=== PATIENT | male | born 1940 | race Two or more races ===

== ENCOUNTER 2019-11-23 12:25 | Inpatient (IN) | payer MEDICARE, OTHER ==
[~2019-11-23] VITALS: Ht 160 cm; Wt 83.0 kg
[2019-11-23 12:34] VITALS: BP 153/78
--- NOTE | 2019-11-23 12:40 | NUR ---
PT AMBULATED TO ER BED 06
--- NOTE | 2019-11-23 12:46 | NUR ---
PATIENT PRESENTS TO ED WITH PRODUCTIVE COUGH AND RUNNY NOSE X 4 DAYS. +SORE THROAT, -FEVER, -N/V/D. PATIENT TOOK OTC MEDS WHICH PROVIDED NO RELIEF. AAOX4 WITH EVEN AND STEADY GAIT; LUNGS CLEAR BL; HR EVEN AND REGULAR; PATIENT STATES PAIN OF 0/10 AT THIS TIME; VSS; PATIENT POSITIONED FOR COMFORT; HOB ELEVATED; BEDRAILS UP X2; BED DOWN. ER MD MADE AWARE OF PT STATUS. PMH: DM, HTN, S/P CVA, BPH MEDS: INSULIN, LANTUS, ATORVASTATIN, TAMSULOSIN, METOPROLOL ALLERGIES: NONE
[2019-11-23] MEDS ORDERED: MECLIZINE 25 MG TAB PO ONE (12:55)
[2019-11-23] MEDS ORDERED: cefTRIAXone 1,000 MG in LIDOCAINE MPF 1% 2.1 ML IM ONE (12:55)
[2019-11-23] MEDS ORDERED: ALBUTEROL SULFATE/IPRATROPIU 3 ML SOL IH ONE (12:55)
[2019-11-23] MEDS ORDERED: KETOROLAC 30 MG/ML VIAL IM ONE (12:55)
[2019-11-23] MEDS ORDERED: predniSONE 20 MG TAB PO ONE (12:55)
[2019-11-23] MEDS ORDERED: hydrOXYzine HCL 25 MG TAB PO ONE (12:55)
[2019-11-23] MEDS ORDERED: cefTRIAXone 1,000 MG VIAL ONE (13:03)
[2019-11-23] MEDS ORDERED: LIDOCAINE MPF 1% 5 ML ONE (13:04)
--- NOTE | 2019-11-23 13:07 | NUR ---
PT TO XRAY VIA WHEELCHAIR
--- NOTE | 2019-11-23 13:18 | NUR ---
MEDICATIONS ADMINISTERED ORDERED
--- NOTE | 2019-11-23 13:31 | NUR ---
CALLED RT FOR BREATHING TX
[2019-11-23] MEDS ORDERED: NACL 0.9% 1,000 ML IV SCH (13:54)
[2019-11-23] MEDS ORDERED: methylPREDNISolone SS 125 MG/2 ML VIAL IVP ONE (13:55)
[2019-11-23] MEDS ORDERED: LEVOFLOXACIN 500 MG/D5W PREMIX 100 ML IV ONE (13:55)
--- NOTE | 2019-11-23 14:38 | NUR ---
PT REFUSED ABG. DR SEXTON IS AWARE. PT IS ON RA SAT 98%. PT IS COMFORTABLE. FAMILY AT BEDSIDE
--- NOTE | 2019-11-23 15:25 | NUR ---
PATIENT LAYING IN BED. AAO, AT BEDSIDE. NO NEEDS STATED AT THIS TIME.
[2019-11-23] MEDS ORDERED: ONDANSETRON 4 MG/2 ML VIAL IM/IVP PRN (15:40)
[2019-11-23] MEDS ORDERED: HYDROcodone/APAP 5/325 MG 1 TAB TAB PO PRN (15:40)
[2019-11-23] MEDS ORDERED: ALBUTEROL SULFATE/IPRATROPIU 3 ML SOL IH PRN (15:40)
[2019-11-23] MEDS ORDERED: ACETAMINOPHEN 325 MG TAB PO PRN (15:40)
[2019-11-23] MEDS ORDERED: LORazepam 2 MG/ML VIAL IM/IVP PRN (15:40)
[2019-11-23] MEDS ORDERED: MORPHINE SULFATE 2 MG/ML SYR IVP PRN (15:40)
[2019-11-23] MEDS ORDERED: DOCUSATE SODIUM 100 MG GELCAP PO PRN (15:40)
[2019-11-23 15:57] LABS: BASOPHILS # (AUTO) 0.1 K/uL (0.00-0.22); BASOPHILS % (AUTO) 1.3 % (0.0-2.0); EOSINOPHILS # (AUTO) 0.3 K/uL (0-0.4); EOSINOPHILS % (AUTO) 5.2 % (0.0-4.0); HEMATOCRIT 51.7 % (36-52); HEMOGLOBIN 17.1 g/dL (12.0-18.0); LYMPHOCYTES # (AUTO) 1.2 K/uL (2.0-11.5); LYMPHOCYTES % (AUTO) 21.8 % (20.5-51.1); MEAN CORPUSCULAR HEMOGLOBIN 30 pg (27-31); MEAN CORPUSCULAR HGB CONC 33 g/dL (33-37); MEAN CORPUSCULAR VOLUME 91.7 fL (80-94); MONOCYTES # (AUTO) 0.2 K/uL (0.8-1.0); NEUTROPHILS # (AUTO) 3.7 K/uL (1.8-7.7); NEUTROPHILS % (AUTO) 67.7 % (42.2-75.2); PLATELET COUNT (AUTO) 128 K/uL (140-450); RED BLOOD CELL COUNT(AUTO) 5.64 MIL/uL (4.20-6.10); RED CELL DISTRIBUTION WIDTH 14.2 % (11.6-13.7); WHITE BLOOD COUNT (AUTO) 5.5 K/uL (4.8-10.8)
[2019-11-23] MEDS ORDERED: METO100T14 PO (16:04)
[2019-11-23] MEDS ORDERED: MID5 PO (16:04)
[2019-11-23] MEDS ORDERED: ISOS20TA13 PO (16:04)
[2019-11-23] MEDS ORDERED: HUM SUBQ (16:04)
[2019-11-23] MEDS ORDERED: ATOR40TA PO (16:04)
[2019-11-23] MEDS ORDERED: ORE25 PO (16:04)
[2019-11-23] MEDS ORDERED: INSU100S22 SUBQ (16:04)
[2019-11-23] MEDS ORDERED: TAMS0.4C96 PO (16:04)
[2019-11-23 16:12] VITALS: BP 155/92
--- NOTE | 2019-11-23 16:12 | NUR ---
PATIENT ADMITTED TO HOSPITAL UNDER BOB CARE OF DR. MENJIVAR. PATIENT TAKEN IN [facility] ON MONITOR TO BED 119-A. REPORT GIVEN TO ZIGGY STAPLES. PATIENT STABLE DURING TRASPORT.
--- NOTE | 2019-11-23 16:12 | NUR ---
PATIENT ARRIVED FROM ER VIA GURNEY. PATIENT ABLE TO AMBULATE FROM ER [facility] TO [facility] WITH STEADY GAIT. AAOX4, CALM, COOPERATIVE, SKIN COLOR APPROPRIATE TO ETHNICITY, WARM TO TOUCH. SKIN INTACT. RESPIRATIONS EVEN, UNLABORED, ON ROOM AIR. IV SITE INTACT, PATENT, AND ON SALINE LOCK. REVIEWED PLAN OF CARE WITH PATIENT/FAMILY AT BEDSIDE. PATIENT/FAMILY VERBALIZED UNDERSTANDING. SAFETY MEASURES IN PLACE, CALL LIGHT WITHIN REACH. WILL CONTINUE TO MONITOR.
[2019-11-23 16:18] LABS: PROTHROMBIN TIME 9.8 secs (10.8-13.4)
[2019-11-23 16:32] LABS: ASPARTATE AMINOTRANSFERASE 16 U/L (15-37); CARBON DIOXIDE 28.9 mmol/L (21-32); CREATININE 1.6 mg/dL (0.7-1.3); GLUCOSE 271 mg/dL (74-106); TOTAL BILIRUBIN 0.4 mg/dL (0.0-1.0); UREA NITROGEN, BLOOD 36 mg/dL (7-18)
[2019-11-23 16:34] LABS: BARBITURATE, URINE NEG. ng/ml (NEG <=200); BENZODIAZEPINE, URINE NEG. ng/mL (NEG <=200); CANNABINOID, URINE NEG. ng/mL (NEG <=50); COCAINE, URINE NEG. ng/mL (NEG <=300); OPIATE, URINE NEG. ng/mL (NEG <=2000); PHENCYCLIDINE SCREEN,URINE NEG. ng/mL (NEG <=25)
[2019-11-23] MEDS ORDERED: DEXTROSE 50% 50 ML SYR IVP PRN (16:35)
[2019-11-23 16:42] LABS: ALBUMIN 3.7 g/dL (3.4-5.0); ANION GAP 12.1 (8-16); CHLORIDE 105 mmol/L (98-107); SODIUM SERUM 141 mmol/L (136-145)
[2019-11-23 16:45] LABS: MAGNESIUM 1.9 mg/dL (1.8-2.4); PHOSPHORUS 2.3 mg/dL (2.5-4.9); THYROID STIMULATING HORMONE 2.2 uIU/mL (0.34-3.74)
[2019-11-23 17:15] LABS: APPEARANCE,URINE CLEAR (CLEAR); BILIRUBIN,URINE NEGATIVE (NEGATIVE); BLOOD, URINE TRACE-I (NEGATIVE); COLOR,URINE YELLOW (YELLOW); LEUKOCYTE ESTERASE ,URINE NEGATIVE (NEGATIVE); NITRITE, URINE NEGATIVE (NEGATIVE); UGLUCOSE 3+ (NEGATIVE)
[2019-11-23] MEDS: INSULIN LISPRO 100 UNITS/ML VIAL SUBQ SCH (18:17)
[2019-11-23] MEDS: NACL 0.9% 1,000 ML IV SCH (18:18)
--- NOTE | 2019-11-23 18:18 | NUR ---
PATIENT SITTING DOWN IN BED. NO DISTRESS NOTED. SCHEDULED MEDICATIONS DUE GIVEN. WILL CONTINUE TO MONITOR.
--- NOTE | 2019-11-23 19:20 | NUR ---
GAVE REPORT TO FINAL FINISHER NURSE. PT IS IN STABLE CONDITION.
--- NOTE | 2019-11-23 19:21 | NUR ---
RECEIVED REPORT FROM AM SHIFT NURSE. PATIENT ALERT AND ORIENTED X4. NO APPARENT DISTRESS NOTED. WITH LEFT AC 20G RUNNING IVF. AMBULATORY. SAFETY OBSERVED AT ALL TIMES. WILL CONTINUE TO MONITOR.
[2019-11-23 20:00] VITALS: BP 140/76
[2019-11-23] MEDS: BLOOD GLUCOSE MONITORING 1 DEV DEV FS SCH (21:15)
[2019-11-23] MEDS: METOPROLOL SUCCINATE 50 MG TABER PO SCH (21:19)
--- NOTE | 2019-11-23 21:20 | NUR ---
PATIENT ASLEEP IN BED. VISIBLE CHEST RISE AND FALL NOTED. NO APPARENT DISTRESS NOTED. WILL CONTINUE TO MONITOR.
[2019-11-23] MEDS: INSULIN LISPRO SLIDING SCALE 100 UNITS/ML VIAL SUBQ PRN (21:24)
[2019-11-23] MEDS: ALBUTEROL SULFATE/IPRATROPIU 3 ML SOL IH SCH (21:41)
--- NOTE | 2019-11-23 21:56 | NUR ---
RECEIVED PATIENT ON ROOM AIR, PULSE OX SAT 95%. SCHEDULED BREATHING TREATMENT ADMINISTERED. TOLERATED TX WELL WITHOUT ADVERSE SIDE EFFECTS. EDUCATED PATIENT ON USE OF INCENTIVE SPIROMETER. PATIENT PERFORMED RETURN DEMONSTRATION WITH GOOD EFFORT. NO ACUTE RESPIRATORY DISTRESS NOTED AT THIS TIME. WILL CONTINUE TO MONITOR.
--- NOTE | 2019-11-23 23:15 | NUR ---
PATIENT ASLEEP IN BED. NO APPARENT DISTRESS NOTED. VISIBLE CHEST RISE AND FALL NOTED. WILL CONTINUE TO MONITOR.
[2019-11-24] VITALS (7 sets, daily range): BP systolic 122–173; BP diastolic 54–82
--- NOTE | 2019-11-24 01:13 | NUR ---
ROUNDS DONE. PATIENT ASLEEP IN BED. NO APPARENT DISTRESS NOTED. VISIBLE CHEST RISE AND FALL NOTED. WILL CONTINUE TO MONITOR.
--- NOTE | 2019-11-24 03:10 | NUR ---
ROUNDS DONE. PATIENT ASLEEP IN BED. NO APPARENT DISTRESS NOTED. VISIBLE CHEST RISE AND FALL. WILL CONTINUE TO MONITOR.
[2019-11-24] MEDS: NACL 0.9% 1,000 ML IV SCH ×2 (03:25→14:29)
--- NOTE | 2019-11-24 05:05 | NUR ---
PATIENT ASLEEP IN BED. NO APPARENT DISTRESS NOTED. BED ON LOW POSITION. VISIBLE CHEST RISE AND FALL NOTED. SAFETY ENSURED. WILL CONTINUE TO MONITOR.
[2019-11-24] MEDS: INSULIN LISPRO SLIDING SCALE 100 UNITS/ML VIAL SUBQ PRN ×3 (06:04→20:56)
[2019-11-24] MEDS: BLOOD GLUCOSE MONITORING 1 DEV DEV FS SCH ×4 (06:23→20:48)
--- NOTE | 2019-11-24 06:32 | NUR ---
PATIENT HAS BEEN SCREENED AND CATEGORIZED MODERATE NUTRITION RISK. PATIENT WILL BE SEEN WITHIN 3-5 DAYS OF ADMISSION. 11/26/19-11/28/19 ORALIA TELLEZ MS, RDN
[2019-11-24 06:40] LABS: BASOPHILS % (AUTO) 0.1 % (0.0-2.0); HEMATOCRIT 49.4 % (36-52); HEMOGLOBIN 16.5 g/dL (12.0-18.0); LYMPHOCYTES # (AUTO) 0.9 K/uL (2.0-11.5); LYMPHOCYTES % (AUTO) 13.7 % (20.5-51.1); MEAN CORPUSCULAR HEMOGLOBIN 30 pg (27-31); MEAN CORPUSCULAR HGB CONC 33 g/dL (33-37); MONOCYTES # (AUTO) 0.1 K/uL (0.8-1.0); NEUTROPHILS # (AUTO) 5.7 K/uL (1.8-7.7); NEUTROPHILS % (AUTO) 84.2 % (42.2-75.2); PLATELET COUNT (AUTO) 125 K/uL (140-450); RED BLOOD CELL COUNT(AUTO) 5.43 MIL/uL (4.20-6.10); RED CELL DISTRIBUTION WIDTH 13.8 % (11.6-13.7); WHITE BLOOD COUNT (AUTO) 6.8 K/uL (4.8-10.8)
[2019-11-24 06:45] LABS: ANION GAP 14.2 (8-16); CARBON DIOXIDE 22.4 mmol/L (21-32); CHLORIDE 107 mmol/L (98-107); CREATININE 1.6 mg/dL (0.7-1.3); GLUCOSE 323 mg/dL (74-106); POTASSIUM 4.6 mmol/L (3.5-5.1); SODIUM SERUM 139 mmol/L (136-145); UREA NITROGEN, BLOOD 42 mg/dL (7-18)
--- NOTE | 2019-11-24 06:56 | NUR ---
PATIENT AWAKE IN BED, RESTING. NO APPARENT DISTRESS NOTED. WILL CONTINUE TO MONITOR.
[2019-11-24 06:58] LABS: CHOL/HDL RATIO 3.6 (1-4.5); MAGNESIUM 1.7 mg/dL (1.8-2.4); PHOSPHORUS 1.7 mg/dL (2.5-4.9)
--- NOTE | 2019-11-24 07:15 | NUR ---
ENDORSED TO AM SHIFT NURSE FOR CONTINUITY OF CARE.
--- NOTE | 2019-11-24 07:20 | NUR ---
RECEIVED REPORT FROM NIGHT NURSE. PT IS ALERT, AWAKE AND ORIENTED X4. PT IS IN BED, NO S/S OF DISTRESS NOTED. CALL LIGHT WITHIN REACH.
[2019-11-24] MEDS: ALBUTEROL SULFATE/IPRATROPIU 3 ML SOL IH SCH ×3 (07:22→20:12)
--- NOTE | 2019-11-24 07:33 | NUR ---
TOLERATED INCENTIVE SPIROMETRY THERAPY WELL ENCOURAGED PATIENT WITH ACKNOWLEDGEMENT TO USE INCENTIVE SPIROMETRY EVERY 1-2 HOURS WHILE AWAKE
[2019-11-24] MEDS ORDERED: SODIUM PHOS / POTASSIUM PHOS 1 PKT PDR PO SCH (08:40)
[2019-11-24] MEDS ORDERED: MAGNESIUM OXIDE 400 MG TAB PO SCH (08:40)
[2019-11-24] MEDS: METOPROLOL SUCCINATE 50 MG TABER PO SCH ×2 (08:55→20:49)
[2019-11-24] MEDS: LACTOBACILLUS RHAMNOSUS GG 1 EACH CAP PO SCH (08:55)
[2019-11-24] MEDS: ISOSORBIDE MONONITRATE 30 MG TABER PO SCH (08:56)
[2019-11-24] MEDS: TAMSULOSIN 0.4 MG CAP PO SCH (08:56)
[2019-11-24] MEDS: ATORVASTATIN 20 MG TAB PO SCH (08:56)
[2019-11-24] MEDS: INSULIN LISPRO 100 UNITS/ML VIAL SUBQ SCH ×3 (08:58→18:00)
[2019-11-24] MEDS: INSULIN LANTUS 100 UNITS/ML 10 ML VIAL SUBQ SCH (08:58)
[2019-11-24] MEDS ORDERED: aMILoride 5 MG TAB PO SCH (09:00)
--- NOTE | 2019-11-24 09:00 | NUR ---
PT AWAKE AND ALERT. AM MEDICATIONS ADMINISTERED. DENIES ANY PAIN OR DISCOMFORT. NO S/S OF DISTRESS NOTED. IV INTACT AND PATENT TO LEFT AC WITH NS INFUSING AT 80ML/HR. TOLERATING WELL. CALL LIGHT WITHIN REACH. SAFETY MEASURES PROVIDED.
--- NOTE | 2019-11-24 11:30 | NUR ---
PATIENT'S BLOOD SUGAR CHECKED, BLOOD SUGAR 267. WILL MEDICATE ORDERED. NO S/S OF DISTRESS NOTED. PT IS IN BED, AWAKE AND ALERT. CALL LIGHT WITHIN REACH.
--- NOTE | 2019-11-24 12:25 | NUR ---
PT OFF UNIT FOR CT SCAN.
--- NOTE | 2019-11-24 12:50 | NUR ---
PT RETURNED FROM CT SCAN.
--- NOTE | 2019-11-24 13:30 | NUR ---
PATIENT'S SON AT BEDSIDE. PATIENT IS ALERT AND VERBALLY RESPONSIVE. NO S/S OF DISTRESS NOTED. ECHOCARDIOGRAM IN PROGRESS. NEEDS MET AT THIS TIME. CALL LIGHT WITHIN REACH.
[2019-11-24] MEDS: LEVOFLOXACIN 250 MG/D5 PREMIX 50 ML IV SCH (14:43)
--- NOTE | 2019-11-24 14:52 | NUR ---
IV ANTIBIOTIC STARTED NOW ORDERED. PT IS AWAKE, ALERT AND VERBALLY RESPONSIVE. SON AT BEDSIDE. NO S/S OF DISTRESS NOTED. IV INTACT AND PATENT TO LEFT AC WITH IVF NS 80ML/HR. BED IN LOW POSITION. CALL LIGHT WITHIN REACH.
[2019-11-24] MEDS ORDERED: RENAL DOSING PER PHARMACY MC PRN (15:35)
--- NOTE | 2019-11-24 16:44 | NUR ---
PT ALERT AND ORIENTED X4. FAMILY AT BEDSIDE. NO S/S OF DISTRESS NOTED. VS STABLE. CALL LIGHT WITHIN REACH. BED IN LOW POSITION. SAFETY PRECAUTIONS IN PLACE.
--- NOTE | 2019-11-24 17:44 | NUR ---
PATIENT IS SITTING UP, EATING DINNER. FAMILY AT BEDSIDE. NO S/S OF DISTRESS NOTED. IVF NS INFUSING @ 80ML/HR. WILL CONTINUE TO MONITOR.
--- NOTE | 2019-11-24 18:06 | NUR ---
RECHECKED BS. BLOOD SUGAR NOTED 147, HUMALOG 20 UNITS NOT GIVEN PER PARAMETERS.
--- NOTE | 2019-11-24 18:42 | NUR ---
PT IN STABLE CONDITION. WILL ENDORSE TO NIGHT NURSE FOR CONTINUITY OF CARE.
--- NOTE | 2019-11-24 19:10 | NUR ---
BEDSIDE REPORT GIVEN TO NIGHT NURSE. PATIENT IS IN STABLE CONDITION.
--- NOTE | 2019-11-24 19:11 | NUR ---
RECEIVED REPORT FROM AM SHIFT NURSE. PATIENT ALERT AND ORIENTED X4. NO APPARENT DISTRESS NOTED. AMBULATORY TO THE BATHROOM. WITH LEFT AC 20G RUNNING IVF. INTRODUCED SELF AND UPDATED BOARD. CALL LIGHT WITHIN REACH. WILL CONTINUE TO MONITOR.
--- NOTE | 2019-11-24 21:10 | NUR ---
PATIENT AWAKE IN BED, RESTING. NO DISTRESS NOTED. BED ON LOW POSITION. WILL CONTINUE TO MONITOR.
[2019-11-25] VITALS: BP 118/73
--- NOTE | 2019-11-25 00:05 | NUR ---
ROUNDS DONE. PATIENT ASLEEP IN BED. VISIBLE CHEST RISE AND FALL NOTED. NO APPARENT DISTRESS NOTED. WILL CONTINUE TO MONITOR.
--- NOTE | 2019-11-25 01:50 | NUR ---
PATIENT ASLEEP IN BED. NOTED WITH VISIBLE CHEST RISE AND FALL. BED ON LOW POSITION. WILL CONTINUE TO MONITOR.
--- NOTE | 2019-11-25 03:21 | NUR ---
CHECKS DONE. PATIENT ASLEEP IN BED. NO APPARENT DISTRESS NOTED. VISIBLE CHEST RISE AND FALL NOTED. BED ON LOW POSITION. WILL CONTINUE TO MONITOR.
[2019-11-25] MEDS: NACL 0.9% 1,000 ML IV SCH (03:45)
[2019-11-25 04:21] VITALS: BP 152/76
--- NOTE | 2019-11-25 05:20 | NUR ---
PATIENT AWAKE IN BED. NO APPARENT DISTRESS NOTED. WILL CONTINUE TO MONITOR.
[2019-11-25] MEDS: BLOOD GLUCOSE MONITORING 1 DEV DEV FS SCH ×4 (06:37→20:47)
[2019-11-25 06:47] LABS: BASOPHILS % (AUTO) 0.3 % (0.0-2.0); EOSINOPHILS # (AUTO) 0.1 K/uL (0-0.4); EOSINOPHILS % (AUTO) 0.8 % (0.0-4.0); HEMATOCRIT 46.7 % (36-52); HEMOGLOBIN 15.3 g/dL (12.0-18.0); LYMPHOCYTES # (AUTO) 2.5 K/uL (2.0-11.5); LYMPHOCYTES % (AUTO) 26.6 % (20.5-51.1); MEAN CORPUSCULAR HEMOGLOBIN 30 pg (27-31); MEAN CORPUSCULAR HGB CONC 33 g/dL (33-37); MEAN CORPUSCULAR VOLUME 91.2 fL (80-94); MONOCYTES # (AUTO) 0.5 K/uL (0.8-1.0); MONOCYTES % (AUTO) 5.7 % (1.7-9.3); NEUTROPHILS # (AUTO) 6.2 K/uL (1.8-7.7); NEUTROPHILS % (AUTO) 66.6 % (42.2-75.2); PLATELET COUNT (AUTO) 138 K/uL (140-450); RED BLOOD CELL COUNT(AUTO) 5.12 MIL/uL (4.20-6.10); RED CELL DISTRIBUTION WIDTH 13.8 % (11.6-13.7); WHITE BLOOD COUNT (AUTO) 9.4 K/uL (4.8-10.8)
[2019-11-25 07:15] LABS: ANION GAP 12.8 (8-16); CHLORIDE 112 mmol/L (98-107); CREATININE 1.3 mg/dL (0.7-1.3); GLUCOSE 59 mg/dL (74-106); POTASSIUM 3.8 mmol/L (3.5-5.1); SODIUM SERUM 146 mmol/L (136-145); UREA NITROGEN, BLOOD 42 mg/dL (7-18)
--- NOTE | 2019-11-25 07:15 | NUR ---
ENDORSED TO NEXT SHIFT FOR CONTINUITY OF CARE.
--- NOTE | 2019-11-25 07:20 | NUR ---
RECEIVED BEDSIDE REPORT FROM NIGHTSHIFT NURSE. PT ASLEEP IN BED. RESPONSIVE TO VERBAL AND TACTILE STIMULI. ABLE TO MAKE NEEDS KNOWN. IV SITE IN L AC 20G. CLEAN, DRY, AND INTACT. RESPIRATIONS EVEN AND UNLABORED WITH NO SOB OR RESPIRATORY DISTRESS. SKIN WARM AND DRY TO TOUCH. NO COMPLAINTS OR CONCERNS. SAFETY MEASURES IN PLACE. WILL CONTINUE TO MONITOR.
[2019-11-25 07:23] LABS: MAGNESIUM 1.6 mg/dL (1.8-2.4); PHOSPHORUS 2.8 mg/dL (2.5-4.9)
[2019-11-25] MEDS: ALBUTEROL SULFATE/IPRATROPIU 3 ML SOL IH SCH ×3 (07:25→19:42)
[2019-11-25 08:00] VITALS: BP 156/80
[2019-11-25] MEDS ORDERED: MAGNESIUM OXIDE 400 MG TAB PO SCH (08:15)
[2019-11-25] MEDS: AMILORIDE 5 MG PO SCH (08:48)
[2019-11-25] MEDS: ISOSORBIDE MONONITRATE 30 MG TABER PO SCH (08:49)
[2019-11-25] MEDS: LACTOBACILLUS RHAMNOSUS GG 1 EACH CAP PO SCH (08:50)
[2019-11-25] MEDS: TAMSULOSIN 0.4 MG CAP PO SCH (08:51)
[2019-11-25] MEDS: ATORVASTATIN 20 MG TAB PO SCH (08:52)
[2019-11-25] MEDS: NACL 0.45% 1,000 ML IV SCH (09:00)
[2019-11-25] MEDS: METOPROLOL SUCCINATE 50 MG TABER PO SCH ×2 (09:14→20:42)
[2019-11-25] MEDS: INSULIN LISPRO 100 UNITS/ML VIAL SUBQ SCH ×3 (09:15→18:00)
--- NOTE | 2019-11-25 09:15 | NUR ---
ADMINISTERED MEDICATION PRESCRIBED PER MD ORDER. PT TOLERATED WELL. MEDICATION EDUCATION PROVIDED. PT VERBALIZED UNDERSTANDING. SAFETY MEASURES IN PLACE. WILL CONTINUE TO MONITOR.
[2019-11-25] MEDS: INSULIN LANTUS 100 UNITS/ML 10 ML VIAL SUBQ SCH (09:20)
--- NOTE | 2019-11-25 11:02 | NUR ---
HOURLY ROUNDING. PT ASLEEP IN BED. RESPONSIVE TO VERBAL AND TACTILE STIMULI. ABLE TO MAKE NEEDS KNOWN. RESPIRATIONS EVEN AND UNLABORED WITH NO SOB OR RESPIRATORY DISTRESS. SAFETY MEASURES IN PLACE. WILL CONTINUE TO MONITOR.
[2019-11-25] MEDS ORDERED: BENZONATATE 100 MG CAPLF PO SCH (12:00)
[2019-11-25] MEDS: guaiFENesin 600 MG TABER PO SCH ×2 (12:01→20:42)
--- NOTE | 2019-11-25 12:01 | NUR ---
ADMINISTERED MEDICATION PRESCRIBED PER MD ORDER. PT TOLERATED WELL. MEDICATION EDUCATION PROVIDED. PT VERBALIZED UNDERSTANDING. SAFETY MEASURES IN PLACE. WILL CONTINUE TO MONITOR.
--- NOTE | 2019-11-25 13:15 | NUR ---
PT ASLEEP IN BED. RESPONSIVE TO VERBAL AND TACTILE STIMULI. ABLE TO MAKE NEEDS KNOWN. RESPIRATIONS EVEN AND UNLABORED WITH NO SOB OR RESPIRATORY DISTRESS. SAFETY MEASURES IN PLACE. WILL CONTINUE TO MONITOR
--- NOTE | 2019-11-25 14:03 | NUR ---
DC [age] YRS OLD MALE PATIENT WAS ADMITTED FROM HOME WITH A DX OF SOB, INTERSTITIAL PNEUMONITIS. PT HAS A HX OF DM, HTN, HLD, [place] IN 2015 AND BPH. AMBULATORY WITHOUT CORPORATE COMMUNICATIONS MANAGER ,NO DME USE. CXR SHOWED ATYPICAL MYCOBACTERIAL INFECTION. ADMINISTERED IV ROCEPHIN ,LEVAQUIN, AND SOLU-MEDROL 125 MG IVP AND TORADOL FOR PAIN. RT PROTOCOL INITIATED BLOOD, UA AND SPUTUM CULTURE PENDING. ,ORDERED PULMO CONSULT WITH DR EDUARDO CARDIAC CONSULT WITH DR RODRIGUEZ SEEN PATIENT AND CONTINUE TREATMENT FOR PNA/URI . DC PLAN TO GO HOME WHEN STABLE CM TO FOLLOW.
--- NOTE | 2019-11-25 15:05 | NUR ---
HOURLY ROUNDING. PT RESTING IN BED WITH FAMILY AT BEDSIDE. ABLE TO MAKE NEEDS KNOWN. RESPIRATIONS EVEN AND UNLABORED WITH NO SOB OR RESPIRATORY DISTRESS. SAFETY MEASURES IN PLACE. WILL CONTINUE TO MONITOR
--- NOTE | 2019-11-25 16:30 | NUR ---
BLOOD SUGAR OBTAINED FROM PT. PT RESTING IN BED. ABLE TO MAKE NEEDS KNOWN. RESPIRATIONS EVEN AND UNLABORED WITH NO SOB OR RESPIRATORY DISTRESS. SAFETY MEASURES IN PLACE. WILL CONTINUE TO MONITOR
[2019-11-25] MEDS ORDERED: BENZONATATE 100 MG CAPLF PO PRN (17:00)
[2019-11-25] MEDS: LEVOFLOXACIN 250 MG/D5 PREMIX 50 ML IV SCH (17:52)
--- NOTE | 2019-11-25 18:06 | NUR ---
HOURLY ROUNDING. PT EATING DINNER WITH FAMILY AT BEDSIDE. ABLE TO MAKE NEEDS KNOWN. RESPIRATIONS EVEN AND UNLABORED WITH NO SOB OR RESPIRATORY DISTRESS. SAFETY MEASURES IN PLACE. WILL CONTINUE TO MONITOR
--- NOTE | 2019-11-25 19:15 | NUR ---
ENDORSED T0 NIGHTSHIFT. PT IS RESTING IN BED. ABLE TO MAKE NEEDS KNOWN. RESPIRATIONS EVEN AND UNLABORED WITH NO SOB OR RESPIRATORY DISTRESS. PT IS STABLE.
--- NOTE | 2019-11-25 19:16 | NUR ---
RECEIVED BEDSIDE REPORT FROM AM SHIFT NURSE. PT ASLEEP IN BED. RESPONSIVE TO VERBAL AND TACTILE STIMULI. ABLE TO MAKE NEEDS KNOWN. SON AT BEDSIDE NOW. IV SITE IN L AC 20G. CLEAN, DRY, AND INTACT. RESPIRATIONS EVEN AND UNLABORED WITH NO SOB OR RESPIRATORY DISTRESS. SKIN WARM AND DRY TO TOUCH. NO COMPLAINTS OR CONCERNS. SAFETY MEASURES IN PLACE. WILL CONTINUE TO MONITOR.
[2019-11-25 20:00] VITALS: BP 139/74
[2019-11-25] MEDS: INSULIN LISPRO SLIDING SCALE 100 UNITS/ML VIAL SUBQ PRN (20:50)
--- NOTE | 2019-11-25 22:35 | NUR ---
PT REFUSED THE HEPARIN TONIGHT ONLY; PT WALKING TO BATHROOM W/ STANDBY ASSIST; PT IS AMBULATORY. EXPLAINED THE RISKS AND BENEFITS ACKNOWLEDGED..
[2019-11-26] MEDS: NACL 0.45% 1,000 ML IV SCH (02:33)
--- NOTE | 2019-11-26 02:42 | NUR ---
WASTED 1000 ML OF NS- WRONG FLUID, WASTED
--- NOTE | 2019-11-26 05:00 | NUR ---
CHECKED BS= 48, ADMINISTERED , PT TOOK ORANGE JUICE THEN D50%IV PUSH WAS GIVEN. TOLERATED WELL; DR. ARREGUIN AWARE
[2019-11-26 05:23] VITALS: BP 138/70
[2019-11-26] MEDS: BLOOD GLUCOSE MONITORING 1 DEV DEV FS SCH (05:52)
--- NOTE | 2019-11-26 05:53 | NUR ---
RECHECKED 169 MG/DL, PT AWAKE,ASYMPTOMATIC
[2019-11-26 06:22] LABS: BASOPHILS % (AUTO) 0.4 % (0.0-2.0); EOSINOPHILS # (AUTO) 0.3 K/uL (0-0.4); EOSINOPHILS % (AUTO) 3.9 % (0.0-4.0); HEMOGLOBIN 15.2 g/dL (12.0-18.0); LYMPHOCYTES # (AUTO) 1.9 K/uL (2.0-11.5); LYMPHOCYTES % (AUTO) 24.9 % (20.5-51.1); MEAN CORPUSCULAR HEMOGLOBIN 30 pg (27-31); MEAN CORPUSCULAR HGB CONC 33 g/dL (33-37); MEAN CORPUSCULAR VOLUME 91.1 fL (80-94); MONOCYTES # (AUTO) 0.5 K/uL (0.8-1.0); MONOCYTES % (AUTO) 6.1 % (1.7-9.3); NEUTROPHILS # (AUTO) 4.8 K/uL (1.8-7.7); NEUTROPHILS % (AUTO) 64.7 % (42.2-75.2); PLATELET COUNT (AUTO) 135 K/uL (140-450); RED BLOOD CELL COUNT(AUTO) 5.05 MIL/uL (4.20-6.10); WHITE BLOOD COUNT (AUTO) 7.4 K/uL (4.8-10.8)
[2019-11-26 06:29] LABS: ANION GAP 13.1 (8-16); CARBON DIOXIDE 24.6 mmol/L (21-32); CHLORIDE 106 mmol/L (98-107); CREATININE 1.3 mg/dL (0.7-1.3); GLUCOSE 173 mg/dL (74-106); POTASSIUM 3.7 mmol/L (3.5-5.1); SODIUM SERUM 140 mmol/L (136-145); UREA NITROGEN, BLOOD 29 mg/dL (7-18)
[2019-11-26 06:34] LABS: MAGNESIUM 1.4 mg/dL (1.8-2.4); PHOSPHORUS 3.1 mg/dL (2.5-4.9)
[2019-11-26] MEDS ORDERED: MAG SULF 2000 MG/WATER PREMIX 50 ML IV ONE ×2 (06:45→08:45)
--- NOTE | 2019-11-26 06:45 | NUR ---
MG 1.4 W/ OREDERS BUT UNVERIFIED YET TO GIVE MAGNESIUM K RIDER. INFORMED/ ENDORSEDTO NEXT SHIFT. DR. OLIVAS AWARE
--- NOTE | 2019-11-26 06:58 | NUR ---
PT AWAKE, ALERT ORIENTED X 4. PT IN STABLE CONDITION. WILL ENDORSE TO NEXT SHIFT
--- NOTE | 2019-11-26 07:20 | NUR ---
RECEIVED BEDSIDE NIGHTSHIFT REPORT. PT ASLEEP IN BED UPON ARRIVAL. ABLE TO MAKE NEEDS KNOWN. SKIN WARM AND DRY TO TOUCH. RESPIRATIONS EVEN AND UNLABORED WITH NO SOB OR RESPIRATORY DISTRESS. IV SITE IN LEFT AC IS CLEAN, DRY, AND INTACT. NO COMPLICATIONS NOTED. SAFETY MEASURES IN PLACE. WILL CONTINUE TO MONITOR
[2019-11-26] MEDS: ALBUTEROL SULFATE/IPRATROPIU 3 ML SOL IH SCH (07:36)
[2019-11-26 08:00] VITALS: BP 156/78
--- NOTE | 2019-11-26 08:34 | NUR ---
PT IS AWARE AND INFORMED OF DISCHARGE TODAY. MULTIPLE ATTEMPTS TO REACH LISSY SALINAS BUT WE ARE NOT ABLE TO GET A HOLD OF HIM. WILL CONTINUE TO MONITOR
[2019-11-26] MEDS: INSULIN LISPRO 100 UNITS/ML VIAL SUBQ SCH (09:00)
[2019-11-26] MEDS ORDERED: LEVO750T2 PO (09:01)
[2019-11-26] MEDS ORDERED: LACT10CA PO (09:01)
[2019-11-26] MEDS ORDERED: GUAI-791 PO (09:01)
[2019-11-26] MEDS ORDERED: BENZ100C6 PO (09:01)
[2019-11-26] MEDS: INSULIN LANTUS 100 UNITS/ML 10 ML VIAL SUBQ SCH (09:34)
[2019-11-26] MEDS: AMILORIDE 5 MG PO SCH (09:39)
[2019-11-26] MEDS: LACTOBACILLUS RHAMNOSUS GG 1 EACH CAP PO SCH (09:39)
[2019-11-26] MEDS: METOPROLOL SUCCINATE 50 MG TABER PO SCH (09:40)
[2019-11-26] MEDS: TAMSULOSIN 0.4 MG CAP PO SCH (09:40)
[2019-11-26] MEDS: guaiFENesin 600 MG TABER PO SCH (09:40)
[2019-11-26] MEDS: ISOSORBIDE MONONITRATE 30 MG TABER PO SCH (09:40)
[2019-11-26] MEDS: ATORVASTATIN 20 MG TAB PO SCH (09:40)
--- NOTE | 2019-11-26 09:40 | NUR ---
ADMINISTERED MEDICATION PRESCRIBED PER MD ORDER. PT TOLERATED WELL. BLOOD SUGAR WAS 132 SO THE INSULIN LISPRO 20 UNITS WAS HELD. HEPARIN WAS ALSO HELD DUE TO THE PLATELETS BEING 135. MEDICATION EDUCATION PERFORMED. PT UNDERSTANDS AND VERBALIZED TEACHING.
--- NOTE | 2019-11-26 10:30 | NUR ---
LISSY SALINAS IS AT BEDSIDE WITH PATIENT. PT IS RESTING IN BED. RESPIRATIONS EVEN AND UNLABORED WITH NO SOB OR RESPIRAOTRY DISTRESS. PATIENT IS AWARE OF DISCHARGE. SAFETY MEASURES IN PLACE. WILL CONTINUE TO MONITOR
[2019-11-26] MEDS ORDERED: INFLUENZA VACCINE QUAD 0.5 ML SYR IMVAC PRN (10:40)
[2019-11-26 11:02] VITALS: BP 156/78
--- NOTE | 2019-11-26 11:48 | NUR ---
Meat Boner Note: Basic Screen: Yes High Risk DC Screen Yes Name: GUALBERTO ABARCA Home Relationship: SON Pre-Admission Living Arrangements: Lives with Other Prior ADL Independent Current Home Health Name/Tel: N/A Current DME/02 Name/Tel: N/A Current Hospice Name/Tel: N/A Current Dialysis Name/Tel: N/A Healthcare Decision Maker: Patient Advance Directive No - PROVIDED TO PT AND SON Physician Orders for Life Sustaining Treatment Form No - PROVIDED TO PT AND SON Patient/Family Have Educational Needs No Information Taught: Advance Directive Person Taught: Children Patient Teaching Tools: Computer Generated Print Verbal Factors Affecting Learning: None Participation Level: Active Evaluation: Verbalizes Understanding Needs Additional Education: No Discipline: Case Mgt/Social Svcs Tentative Discharge Plan/Destination: No Needs Identified Will require assistance post discharge: No Referred to Entry Level Marketing Representative: No Tentative Discharge Plan Summary: Patient is a 79-year-old male admitted for flu-like symptoms. Patient has PMHX of DM, HTN, HLD, [place], and BPH. Patient was admitted from home. JESSICA met with patient at bedside to verify demographics with Software Reliability Engineer Teetee. Patient was accompanied by his son, Gualberto Abarca. JESSICA spoke to Gualberto regarding phone numbers on face sheet that are no longer in service. Gualberto provided phone number [phone] as updated contact information. Gualberto stated that patient has no history of substance abuse or mental health. JESSICA provided education on advanced directive and POLST to Gualberto. Gualberto stated that he will review documents with his . JESSICA provided JESSICA's phone number if additional assistance is needed. Patient's discharge plan is to return home. No further needs identified. Signature: PRASANTH Harvey Date: Nov 26, 2019 Time: 11:47
--- NOTE | 2019-11-26 12:00 | NUR ---
PT IS RESTING IN BED UPON ARRIVAL WITH LISSY SALINAS AT BEDSIDE. WENT OVER DISCHARGE INSTRUCTIONS WITH PATIENT AND SON. NO COMPLICATIONS OR CONCERNS AT THIS TIME. PT SIGNED APPROPRIATE PAPERWORK. INFORMED PT AND SON TO VISIT ED IF HE SHOWS ANY SIGNS OF DISTRESS. VERBALIZED UNDERSTANDING. PREVIOUS PNA VACCINE WAS ALREADY GIVEN OCT 2019. FLU VACCINE WAS ADMINISTERED. PT TOLERATED WELL. ID BAND AND INTACT IV CANNULA WERE REMOVED. PT WAS GIVEN CT SCAN CD AND HOME MEDICATIONS. PT GATHERED ALL OF HIS BELONGINGS. NOTHING LEFT BEHIND. PT WHEELED OUT TO PRIVATE VEHICLE WITH NO COMPLICATIONS. PT IS STABLE
== END 2019-11-26 11:45 | disposition home or self-care (01) | DRG 682 ==
LOC: MED 12:25 → MTU 15:37
PROVIDERS: ADMIT General Practice; ATTEND General Practice
DX: N17.0 Acute kidney failure with tubular necrosis (principal); J18.9 Pneumonia, unspecified organism; E87.0 Hyperosmolality and hypernatremia; E11.22 Type 2 diabetes mellitus with diabetic chronic kidney disease; E78.5 Hyperlipidemia, unspecified; I12.9 Hypertensive chronic kidney disease with stage 1 through stage 4 chronic kidney disease, or unspecified chronic kidney disease; I25.10 Atherosclerotic heart disease of native coronary artery without angina pectoris; N18.9 Chronic kidney disease, unspecified; I44.7 Left bundle-branch block, unspecified; N40.0 Benign prostatic hyperplasia without lower urinary tract symptoms; E66.9 Obesity, unspecified; E11.65 Type 2 diabetes mellitus with hyperglycemia; E83.42 Hypomagnesemia; E87.8 Other disorders of electrolyte and fluid balance, not elsewhere classified; Z87.891 Personal history of nicotine dependence; Z79.4 Long term (current) use of insulin; Z79.899 Other long term (current) drug therapy; Z86.73 Personal history of transient ischemic attack (TIA), and cerebral infarction without residual deficits; I25.2 Old myocardial infarction; Z68.32 Body mass index [BMI] 32.0-32.9, adult; Z23 Encounter for immunization
CPT/HCPCS: 36415; 71046; 71250; 76604; 80048; 80053; 80305; 81003; 82140; 82150; 82948; 83036; 83605; 83690; 83735; 83880; 84100; 84443; 84484; 85025; 85610; 85730; 87040; 87070; 87081; 87086; 87205; 87804; 93005; 93925; 93970; 94640; 96365; 96372; 96375; 99285; J0696; J1644; J1815; J1885; J1956; J2001; J2930; J3475; J7030; J7512; J7620; J8597; Q0092